=== PATIENT | male | born 1965 | race Caucasian/White ===

== ENCOUNTER → 2018-03-12 | Emergency (ER) | payer OTHER, BC ==
[~2018-03-12] VITALS: Ht 177.8 cm; Wt 77.1 kg
[~2018-03-12] MED LIST: NORCO 5-325 TA1 EACH PO
== END ==
LOC: ED 20:25
DX: S43.101A Unspecified dislocation of right acromioclavicular joint, initial encounter (principal); S22.41XA Multiple fractures of ribs, right side, initial encounter for closed fracture; V86.99XA Unspecified occupant of other special all-terrain or other off-road motor vehicle injured in nontraffic accident, initial encounter
CPT/HCPCS: 73030; 99283